=== PATIENT | male | born 1965 | race Two or more races ===

== ENCOUNTER 2018-07-25 17:44 | Emergency (ER) | payer SELFPAY ==
[2018-07-25 18:00] VITALS: BP 147/97
[2018-07-25] MEDS ORDERED: KETOROLAC TROMETHAMINE 60 MG/2 ML SDV IM ONE (18:35)
--- NOTE | 2018-07-25 18:37 | ER Document Report ---
HPI - HPI Time Seen by Provider: 07/25/18 18:17 Pain Level: 4 Notes: Patient is a 53-year-old male no significant past medical history who presents to the emergency department complaining of right ear pain and decreased hearing over the last 2-3 weeks. Patient states he has not had any other recent illness. He is eating and drinking without difficulty. He is urinating normally and having normal bowel movements. He is able to walk without any staggering gait and does not have any associated dizziness. Denies drug allergies. No other concerns or complaints. He has not been seen by anybody for this complaint before. Denies any headache, fever, head injury, neck pain, changes in vision/speech/mentation, URI, sore throat, chest pain, palpitations, syncope, cough, shortness of breath, wheeze, dyspnea, abdominal pain, nausea/vomiting/diarrhea, urinary retention, dysuria, hematuria, loss of control of bowel or bladder, numbness/tingling, saddle anesthesia, muscle paralysis/weakness, or rash. - ROS Systems Reviewed and Negative: Yes All other systems reviewed and negative - CONSTITUTIONAL Constitutional: REPORTS: Fever - intermittent. DENIES: Chills - EENT EENT: REPORTS: Ear Pain. DENIES: Sore Throat, Eye problems - NEURO Neurology: DENIES: Headache, Weakness, Vision blurred, Dizzinesss / Vertigo - CARDIOVASCULAR Cardiovascular: DENIES: Chest pain - RESPIRATORY Respiratory: DENIES: Trouble Breathing, Coughing - GASTROINTESTINAL Gastrointestinal: DENIES: Abdominal Pain, Black / Bloody Stools - URINARY Urinary: DENIES: Dysuria, Urgency, Frequency - REPRODUCTIVE Reproductive: DENIES: : - MUSCULOSKELETAL Musculoskeletal: DENIES: Extremity pain Past Medical History - Social History Smoking Status: Current Every Day Smoker Chew tobacco use (# tins/day): No Frequency of alcohol use: None Drug Abuse: None Family History: Reviewed & Not Pertinent Patient has suicidal ideation: No Patient has homicidal ideation: No Renal/ Medical History: Denies: Hx Peritoneal Dialysis Past Surgical History: Reports: Hx Orthopedic Surgery - left ACL repair - Immunizations Hx Diphtheria, Pertussis, Tetanus Vaccination: Yes Vertical Provider Document - CONSTITUTIONAL Agree With Documented VS: Yes Notes: PHYSICAL EXAMINATION: GENERAL: Well-appearing, well-nourished and in no acute distress. HEAD: Atraumatic, normocephalic. EYES: Pupils equal round and reactive to light, extraocular movements intact, sclera anicteric, conjunctiva are normal. ENT: EAC's b/l have cerumen impaction. Unable to visualize TM's. No erythema of canals or tragus/mastoid tenderness. Nares patent and without discharge. oropharynx clear without exudates. No tonsilar hypertrophy or erythema. Moist mucous membranes. No sinus tenderness. NECK: Normal range of motion, supple without lymphadenopathy LUNGS: Breath sounds clear to auscultation bilaterally and equal. No wheezes rales or rhonchi. HEART: Regular rate and rhythm without murmurs, rubs, gallops. Extremities: No cyanosis, clubbing, or edema b/l. Peripheral pulses 2+. Capillary refill less than 3 seconds. NEUROLOGICAL: Cranial nerves grossly intact. Normal speech, normal gait. Normal sensory, motor exams PSYCH: Normal mood, normal affect. SKIN: Warm, Dry, normal turgor, no rashes or lesions noted. - INFECTION CONTROL TRAVEL OUTSIDE OF THE [place] IN LAST 30 DAYS: No Course - Re-evaluation Re-evalutation: 07/25/18 18:32 Patient is an afebrile, well-hydrated, 53-year-old male who presents to the emergency department with right otalgia which I suspect to be secondary to cerumen impaction. Vitals are acceptable without significant tachycardia, tachypnea, or hypoxia. PE is otherwise unremarkable. Ear irrigation was attempted and unsuccessful. His canal is very long and the cerumen impaction is fairly deep and I do not want to attempt manual extraction due to risk of puncturing his tympanic membrane. No labs or imaging warranted at this time. Toradol given IM. Thoroughly discussed that patient needs to be followed up by ENT for definitive management of cerumen impaction, and I will send him with a prescription for Debrox. Low suspicion for any sepsis, meningitis, severe dehydration, respiratory compromise, mastoiditis, or other systemic emergent condition at this time. Patient is aware that condition can change from initial presentation and he needs to monitor symptoms closely and seek medical attention with any acute changes. Recheck with your PCM/ENT this week. Return to the ED with any other worsening/concerning symptoms as reviewed. Patient is in agreeme nt. - Vital Signs Vital signs: Temp Pulse Resp BP Pulse Ox 97.9 F 73 18 147/97 H 100 07/25/18 17:59 07/25/18 17:59 07/25/18 17:59 07/25/18 17:59 07/25/18 17:59 Discharge - Discharge Clinical Impression: Otalgia, right ear, Impacted cerumen, bilateral Condition: Stable Disposition: HOME, SELF-CARE Instructions: Cerumen Impaction ([facility]) Additional Instructions: Maintain adequate fluid intake Take meds as directed tylenol/ibuprofen as needed Avoid Q-tips in the ears over the counter cold medication as needed for symptoms F/u: with your PCM in 3-5 days for a recheck Schedule a consult with ENT this week Return to the ED with any fever, dizziness, tinnitus, headaches, worsening pain, chest pain, palpitations, syncope, neck pain/stiffness, shortness of breath, wheezing, drooling, trouble swallowing/breathing, abdominal pain, n/v/d, rash, or worsening/concerning symptoms otherwise. Prescriptions: Carbamide Peroxide [Debrox] 5 drop OT TID #1 bottle Forms: Elevated Blood Pressure, Smoking Cessation Education Referrals: DINO MUSTFAA DO [ASSOCIATE] - Follow up in 3-5 days
== END 2018-07-25 19:20 | disposition home or self-care (01) ==
LOC: ER 17:44
DX: H61.23 Impacted cerumen, bilateral (principal); H92.01 Otalgia, right ear; R50.9 Fever, unspecified; F17.200 Nicotine dependence, unspecified, uncomplicated
CPT/HCPCS: 99282; 96372; J1885